=== PATIENT | female | born 1955 | race Caucasian/White ===

== ENCOUNTER 2022-05-09 15:10 | Outpatient (CLI) | payer OTHER, SELFPAY ==
[2022-05-09 22:12] LABS: Chloride* 106 mmol/L (96-114); Potassium* 4.4 mmol/L (3.6-5.1); Sodium* 139 mmol/L (135-149)
[2022-05-09 22:15] LABS: Blood Urea Nitrogen* 19 mg/dL (7-30); Calcium* 9.5 mg/dL (8.4-10.6); Creatinine* 0.7 mg/dL (0.5-1.5); Estimated Glomerular Filt Rate 97 ml/min; Glucose* 93 mg/dL (60-115)
[2022-05-09 22:31] LABS: Carbon Dioxide* 24 mmol/L (20-32)
== END 2022-05-09 15:11 | disposition home or self-care (01) ==
PROVIDERS: PCP Emergency Medicine; Visit Provider Emergency Medicine
DX: R53.83 Other fatigue (principal)
CPT/HCPCS: 80048; 84443

== ENCOUNTER 2023-02-20 12:51 | Outpatient (CLI) | payer MEDICARE, OTHER, SELFPAY | END 2023-02-20 12:52 | disposition home or self-care (01) | LOC: WOUND 12:52 | PROVIDERS: PCP Emergency Medicine; Visit Provider Nurse Practitioner Family | DX: S80.11XA Contusion of right lower leg, initial encounter (principal); S50.12XA Contusion of left forearm, initial encounter; V29.99XA Rider (driver) (passenger) of other motorcycle injured in unspecified traffic accident, initial encounter | CPT/HCPCS: 97602; 99212 ==

== ENCOUNTER 2023-02-27 13:33 | Outpatient (CLI) | payer MEDICARE, OTHER, SELFPAY | END 2023-02-27 13:34 | disposition home or self-care (01) | LOC: WOUND 13:33 | PROVIDERS: PCP Emergency Medicine; Visit Provider Nurse Practitioner Family | DX: S50.12XA Contusion of left forearm, initial encounter; S80.11XA Contusion of right lower leg, initial encounter | CPT/HCPCS: 99213 ==

== ENCOUNTER 2023-03-13 12:03 | Outpatient (CLI) | payer MEDICARE, OTHER, SELFPAY | END 2023-03-13 12:04 | disposition home or self-care (01) | LOC: LKVREF 12:04 | PROVIDERS: PCP Emergency Medicine; Visit Provider Emergency Medicine | DX: I10 Essential (primary) hypertension (principal) | CPT/HCPCS: 80048 ==

== ENCOUNTER 2023-08-01 14:28 | Outpatient (CLI) | payer MEDICARE, OTHER, SELFPAY ==
--- NOTE | 2023-08-01 14:30 | CRLHL7_ITS ---
For Patients: As a result of the Century Cures Act, medical imaging exams and procedure reports are released immediately into your electronic medical record. You may view this report before your referring provider. If you have questions, please contact your health care provider. DXA BONE MINERAL DENSITY STUDY Reason for exam: Osteopenia. Current height (in): 61.0. Weight (lb): 185.0. Menopause age: 43. Ethnicity: White. 1. Have you had a previous hip or vertebral fracture? No. 2. Have you had any fractures during your adult life which did not result from significant trauma (e.g., auto accident)? No. 3. Did either of your parents have a hip fracture? No. 4. Do you smoke? No. 5. Have you ever taken Glucocorticoids? No. 6. Do you have rheumatoid arthritis? No. 7. Do you have secondary osteoporosis? No. 8. Do you drink 3 or more alcoholic drinks per day? No. 9. Are you being treated for osteoporosis? No. 10. Have you ever taken any of the following medications: Actonel, Evista, Fosamax, Miacalcin, Reclast, Boniva, Forteo, HRT (i.e. estrogen/hormone therapy), Protelos, Prolia, Vitamin D, Calcium, other ??? please specify. ANSWER: Yes, vitamin D, calcium. 11. Do you have any of the following medical conditions: Anorexia or bulimia, asthma or emphysema, end stage renal disease, hyperparathyroidism, any seizure disorders, cancer, inflammatory bowel diseases, hysterectomy, other ??? please specify. ANSWER: No. 12. What was your maximum height (inches)? 61. 13. Do you perform weight bearing exercise regularly? No. 14. Do you regularly consume dairy products? No. 15. Do you drink caffeinated beverages? Yes. 16. At what age did your period start? 15. 17. Are you premenopausal? No. 18. How many full term pregnancies have you had? Zero. 19. Have you ever missed your period for more than 6 months in a row (not including or menopause)? No. TECHNIQUE: Bone mineral density study was performed using the [employer]. FINDINGS: The results of the study expressed as bone mineral density (BMD) are as follows: Lumbar spine L1 to L4: BMD: 1.029 g/cm2. T-score: -0.2. Z-score: 1.7. Neck Left: BMD: 0.763 g/cm2. T-score: -0.8. Z-score: 0.8. Right: BMD: 0.762 g/cm2. T-score: -0.8. Z-score: 0.8. Total Left: BMD: 1.009 g/cm2. T-score: 0.6. Z-score: 1.8. Right: BMD: 0.999 g/cm2. T-score: 0.5. Z-score: 1.7. IMPRESSION: Normal bone density. Malik Noel M.D. Diagnostic Radiologist [email or web address] GIGI/nasrin / be/Dictated by: Malik Noel MD @ 08/02/2023 12:29:00 PM (Electronically Signed)
--- NOTE | 2023-08-01 15:20 | CRLHL7_ITS ---
For Patients: As a result of the Century Cures Act, medical imaging exams and procedure reports are released immediately into your electronic medical record. You may view this report before your referring provider. If you have questions, please contact your health care provider. BILATERAL SCREENING MAMMOGRAM WITH COMPUTER-AIDED DETECTION AND TOMOSYNTHESIS TECHNIQUE: CC, MLO and Implant displaced views were obtained. These mammographic images have been obtained using full-field digital technique. These mammographic images were interpreted with the benefit of computer-aided detection. Breast Tomosynthesis was used in this interpretation. COMPARISON FILM: 11/02/17, 04/07/14, 01/04/12. FINDINGS: There are scattered areas of fibroglandular density IMPRESSION: There is no radiographic evidence for malignancy. ASSESSMENT: BI-RADS Category 1: Negative RECOMMENDATION: Routine screening mammogram in 1 year. A lay language report of this examination will be provided to the patient. Malik Noel M.D. Diagnostic Radiologist [email or web address] GIGI/mayito Transcribed: 4:43 p.[email or web address] edmond/Dictated by: Malik Noel MD @ 08/02/2023 11:50:00 AM (Electronically Signed)
== END 2023-08-01 14:29 | disposition home or self-care (01) ==
LOC: RAD 14:29
PROVIDERS: PCP Emergency Medicine; Visit Provider Emergency Medicine
DX: Z12.31 Encounter for screening mammogram for malignant neoplasm of breast (principal); M85.80 Other specified disorders of bone density and structure, unspecified site
CPT/HCPCS: 77063; 77067; 77080

== ENCOUNTER 2023-12-18 16:24 | Outpatient (CLI) | payer MEDICARE, OTHER, SELFPAY | END 2023-12-18 16:25 | disposition home or self-care (01) | LOC: NFLDREF 12-21 07:01 | PROVIDERS: PCP Emergency Medicine; Referring Provider Emergency Medicine; Visit Provider Emergency Medicine | DX: R10.13 Epigastric pain (principal) | CPT/HCPCS: 87338 ==

== ENCOUNTER 2024-01-28 10:42 | Outpatient (CLI) | payer MEDICARE, OTHER, SELFPAY | END 2024-01-28 10:43 | disposition home or self-care (01) | LOC: NFLDREF 01-29 08:35 | PROVIDERS: PCP Emergency Medicine; Referring Provider Emergency Medicine; Visit Provider Emergency Medicine | DX: R73.01 Impaired fasting glucose (principal); I10 Essential (primary) hypertension; Z13.220 Encounter for screening for lipoid disorders | CPT/HCPCS: 80053; 80061 ==

== ENCOUNTER 2024-01-29 13:43 | Outpatient (CLI) | payer MEDICARE, OTHER, SELFPAY | END 2024-01-29 13:44 | disposition home or self-care (01) | LOC: NFLDREF 01-30 10:15 | PROVIDERS: PCP Emergency Medicine; Referring Provider Emergency Medicine; Visit Provider Emergency Medicine | DX: E87.5 Hyperkalemia (principal) | CPT/HCPCS: 84132 ==

== ENCOUNTER 2024-06-05 13:52 | Outpatient (CLI) | payer MEDICARE, OTHER, SELFPAY | END 2024-06-05 13:53 | disposition home or self-care (01) | PROVIDERS: PCP Emergency Medicine; Visit Provider Emergency Medicine | DX: R10.9 Unspecified abdominal pain (principal) | CPT/HCPCS: 80048; 80076; 83690; 87086 ==

== ENCOUNTER 2024-06-10 11:24 | Outpatient (CLI) | payer MEDICARE, OTHER, SELFPAY ==
--- NOTE | 2024-06-10 11:30 | CRLHL7_ITS ---
For Patients: As a result of the Century Cures Act, medical imaging exams and procedure reports are released immediately into your electronic medical record. You may view this report before your referring provider. If you have questions, please contact your health care provider. INDICATION: Unspecified abdominal pain. COMPARISON: August 21, 2017. TECHNIQUE: Real time marcum scale imaging and color Doppler analysis was performed of the right upper quadrant. FINDINGS: The patient`s liver is of normal size and has uniform echogenicity. There is a normal appearance of the hepatic IVC and proximal abdominal aorta. There is no evidence of ascites. The gallbladder is of normal size and there is no evidence of intraluminal stones or sludge. The gallbladder wall measures 1.0 mm in thickness. The common bile duct is of normal size and measures 3.0 mm in diameter at the level of the holland hepatis. The pancreas appears normal. There is no evidence of a stone or hydronephrosis within the right kidney. The right kidney measures 10.1 cm in length. IMPRESSION: Normal right upper quadrant ultrasound. No change. Dictated by Gregory Orellana MD @ 06/12/2024 9:05:09 AM (Electronically Signed)
== END 2024-06-10 11:25 | disposition home or self-care (01) ==
LOC: US 11:28
PROVIDERS: PCP Emergency Medicine; Visit Provider Emergency Medicine
DX: R10.9 Unspecified abdominal pain (principal)
CPT/HCPCS: 76705

== ENCOUNTER 2025-05-06 15:01 | Outpatient (CLI) | payer MEDICARE, OTHER, SELFPAY ==
--- NOTE | 2025-05-06 15:45 | CRLHL7_ITS ---
For Patients: As a result of the Century Cures Act, medical imaging exams and procedure reports are released immediately into your electronic medical record. You may view this report before your referring provider. If you have questions, please contact your health care provider. INDICATION: Leg pain TECHNIQUE: Ultrasound venous duplex lower right extremity. Compression venous exam was performed using marcum-scale, color Doppler, and spectral Doppler analysis. COMPARISON: None. FINDINGS: Deep veins: Sonographic imaging demonstrates the right common femoral, deep femoral, superficial femoral, popliteal, posterior tibial and the contralateral left common femoral veins to be fully compressible with normal color Doppler blood flow. Superficial veins: Greater saphenous vein is fully compressible. No popliteal cyst. IMPRESSION: No evidence of venous thrombosis in the examined veins. Dictated by Darline Croft MD @ 05/06/2025 4:07:46 PM (Electronically Signed)
== END 2025-05-06 15:02 | disposition home or self-care (01) ==
LOC: US 15:02
PROVIDERS: PCP Family Medicine; Visit Provider Family Medicine
DX: M79.604 Pain in right leg (principal); M79.89 Other specified soft tissue disorders
CPT/HCPCS: 93971